=== PATIENT | male | born 1980 | race Caucasian/White ===

== ENCOUNTER 2017-10-01 14:53 | Emergency (ER) | payer OTHER ==
--- NOTE | 2017-10-01 15:02 | ED Physician Documentation ---
PD HPI NVD - Stated complaint Stated Complaint: N/V - History obtained from History obtained from: Patient - History of Present Illness Timing - onset: How many days ago (2 days of some diarrheal loose stool. Today he was exercising doing his PRT and then on the bicycle started feeling dizzy lightheaded and reportedly nearly fainted. He got pale and was helped to the ground. Reportedly his blood pressure was very low and his pulse was weak. EMS was called and the patient was improving at the time of their arrival. He had an IV started and was given fluids en route improved quite a bit. He states he did feel that he was hydrating through the day but had had some diarrhea and mild nausea the last couple of days.) Timing - duration: Days (2 days of some illness with onset of significant nausea and vomiting today during physical exercise and had a near-syncope episode.) Timing - details: Gradual onset, Still present Associated symptoms: Near syncope / syncope. No: Fever, Abdominal pain, Melena , Hematochezia, Loss of appetite Contributing factors: No: Sick contact, Bad food, Travel Similar symptoms before: Has not had sx before Recently seen: Not recently seen Review of Systems Constitutional: denies: Fever, Chills, Myalgias Nose: denies: Rhinorrhea / runny nose, Congestion Throat: denies: Sore throat Cardiac: denies: Chest pain / pressure, Palpitations Respiratory: denies: Dyspnea, Cough GI: reports: Nausea, Vomiting, Diarrhea. denies: Abdominal Pain : denies: Dysuria, Frequency Skin: denies: Rash, Lesions Neurologic: reports: Near syncope Endocrine: denies: Weight loss Immunocompromised: denies: Immunocompromised PD PAST MEDICAL HISTORY - Past Medical History Cardiovascular: None Respiratory: None Neuro: CVA Endocrine/Autoimmune: None GI: Other : None HEENT: None Psych: None Musculoskeletal: Gout Derm: None - Past Surgical History Past Surgical History: No - Present Medications Home Medications: Ambulatory Orders Medication Instructions Recorded Confirmed Aspirin 325 mg PO HS 11/01/12 02/05/16 Aspirin [Aspir-Low] 81 mg PO DAILY 02/04/16 02/05/16 Loperamide [Imodium] 2 mg PO QID PRN #16 capsule 10/01/17 Ondansetron HCl [Zofran] 4 mg PO Q6H PRN #10 tablet 10/01/17 - Allergies Allergies/Adverse Reactions: Allergies Allergy/AdvReac Type Severity Reaction Status Date / Time No Known Drug Allergies Allergy Verified 01/06/16 03:51 - Social History Does the pt smoke?: No Smoking Status: Never smoker Does the pt drink ETOH?: No Does the pt have substance abuse?: No - Family History Family history: reports: Non contributory - Immunizations Immunizations are current?: Yes - POLST Patient has POLST: No PD ED PE NORMAL - Vitals Vital signs reviewed: Yes - General General: Alert and oriented X 3, No acute distress, Well developed/nourished - HEENT HEENT: Moist mucous membranes, Pharynx benign - Neck Neck: Supple, no meningeal sign, No adenopathy - Cardiac Cardiac: RRR, No murmur - Respiratory Respiratory: Clear bilaterally - Abdomen Abdomen: Normal bowel sounds, Soft, Non tender, Non distended - Male Male : Deferred - Rectal Rectal: Deferred - Back Back: No CVA TTP - Derm Derm: Normal color, Warm and dry - Neuro Neuro: Alert and oriented X 3, 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 No: ST elevation c/w ischemia, ST depression - Labs Labs: Laboratory Tests 10/01/17 10/01/17 15:32 15:32 WBC 12.8 H RBC 5.28 Hgb 15.2 Hct 45.7 MCV 86.6 MCH 28.8 MCHC 33.3 RDW 13.1 Plt Count 206 MPV 7.7 Neut # 10.6 H Lymph # 1.4 L [place] # 0.7 Eos # 0.1 Baso # 0.1 Absolute Nucleated RBC 0.00 Nucleated RBC % 0.0 Sodium 137 Potassium 4.0 Chloride 106 Carbon Dioxide 24 Anion Gap 7.0 BUN 19 Creatinine 1.2 Estimated GFR (MDRD) 68 L Glucose 107 H Calcium 8.6 Magnesium 2.4 Total Bilirubin 0.8 AST 26 ALT 45 Alkaline Phosphatase 69 Total Protein 7.0 Albumin 4.1 Globulin 2.9 Albumin/Globulin Ratio 1.4 Lipase 26 Departure - Departure Disposition: 01 Home, Self Care Clinical Impression: Vomiting and diarrhea, Near syncope Condition: Stable Record reviewed to determine appropriate education?: Yes Instructions: ED Near Syncope Vasovagal Follow-Up: [facility] [Provider Group] Prescriptions: Loperamide [Imodium] 2 mg PO QID PRN #16 capsule PRN Reason: Diarrhea Ondansetron HCl [Zofran] 4 mg PO Q6H PRN #10 tablet PRN Reason: Nausea / Vomiting Comments: Drink lots of fluids. Rest today. Use Tylenol if needed for pains. I would institute on if needed for nausea and Imodium if needed for persistent diarrhea. No vigorous physical activity for a day or 2. Follow-up with your primary. Forms: Activity restrictions Discharge Date/Time: 10/01/17 16:46
[2017-10-01] MEDS ORDERED: SODIUM CHLORIDE 0.9% 1,000 ML IV ONE (15:18)
[2017-10-01 15:39] LABS: BASOPHILS # (AUTO) 0.1 10^3/uL (0.0-0.1); BASOPHILS % (AUTO) 0.5 %; EOSINOPHILS # (AUTO) 0.1 10^3/uL (0.0-0.7); EOSINOPHILS % (AUTO) 0.7 %; HGB - HEMOGLOBIN 15.2 g/dL (14.0-18.0); LYMPHOCYTES # (AUTO) 1.4 10^3/uL (1.5-3.5); LYMPHOCYTES % (AUTO) 10.8 %; MEAN CORPUSCULAR HEMOGLOBIN 28.8 pg (27.0-31.0); MEAN CORPUSCULAR HGB CONC 33.3 g/dL (32.0-36.0); MEAN CORPUSCULAR VOLUME 86.6 fL (80.0-94.0); MEAN PLATELET VOLUME 7.7 fL (7.4-11.4); MONOCYTES # (AUTO) 0.7 10^3/uL (0.0-1.0); MONOCYTES % (AUTO) 5.3 %; NEUTROPHILS # (AUTO) 10.6 10^3/uL (1.5-6.6); NEUTROPHILS % (AUTO) 82.7 %; PLT - PLATELET COUNT 206 10^3/uL (130-450); RED BLOOD COUNT 5.28 10^6/uL (4.70-6.10); RED CELL DISTRIBUTION WIDTH 13.1 % (12.0-15.0); WHITE BLOOD COUNT 12.8 x10^3/uL (4.8-10.8)
[2017-10-01 15:51] LABS: ALBUMIN 4.1 g/dL (3.2-5.5); ALBUMIN/GLOBULIN RATIO 1.4 (1.0-2.2); BILIRUBIN,TOTAL 0.8 mg/dL (0.2-1.0); CALCIUM 8.6 mg/dL (8.5-10.3); CREATININE 1.2 mg/dL (0.6-1.2); MAGNESIUM 2.4 mg/dL (1.7-2.8)
[2017-10-01 16:04] VITALS: BP 123/78
== END 2017-10-01 16:46 | disposition home or self-care (01) ==
LOC: EDUNIT# → ED 14:53
DX: R55 Syncope and collapse (principal); R11.2 Nausea with vomiting, unspecified; R19.7 Diarrhea, unspecified; M10.9 Gout, unspecified; Z86.73 Personal history of transient ischemic attack (TIA), and cerebral infarction without residual deficits; Z79.82 Long term (current) use of aspirin
CPT/HCPCS: 36415; 80053; 83690; 83735; 85025; 93005; 96360; 99283